=== PATIENT | female | born 1985 | race Caucasian/White ===

== ENCOUNTER 2017-10-31 16:23 | Emergency (ER) | payer OTHER ==
[2017-10-31 16:34] VITALS: BP 108/57
[2017-10-31] MEDS ORDERED: DIPH/PERTUSS(ACELL)/TETANUS VAC/PF 0.5 ML SYR (>=10YO) IM ONE (17:33)
--- NOTE | 2017-10-31 17:33 | ER Document Report ---
ED Medical Screen (RME) - General Chief Complaint: Laceration Stated Complaint: FINGER LACERATION Time Seen by Provider: 10/31/17 17:29 Mode of Arrival: Ambulatory Information source: Patient Notes: 32-year-old female presents to the emergency department today with complaints of a laceration to her right fourth digit. Patient states that she was attempting to cut a zip tie with a knife and the knife slipped. Patient complains of decreased sensation but is wearing a constrictive pressure dressing. Patient is left-hand dominant. TRAVEL OUTSIDE OF THE [place] IN LAST 30 DAYS: No - Related Data Allergies/Adverse Reactions: No Known Allergies Allergy (Verified 06/27/14 12:08) Past Medical History - General Information source: Patient, H Records GI Medical History: Reports: Hx Colonoscopy - Immunizations Immunizations up to date: Yes Hx Diphtheria, Pertussis, Tetanus Vaccination: Yes Review of Systems - Review of Systems Musculoskeletal: See HPI, Other - laceration to right fourth digit on RUE Physical Exam - Vital signs Vitals: Temp Pulse Resp BP Pulse Ox 98.2 F 98 14 108/57 L 97 10/31/17 16:32 10/31/17 16:32 10/31/17 16:32 10/31/17 16:32 10/31/17 16:32 - Skin Notes: 1 cm laceration to the radial aspect of the proximal fourth phalanx. Capillary refill less than 2 seconds. Decreased sensation distally. Of note, patient was wearing a constrictive pressure dressing on arrival. Course - Vital Signs Vital signs: Temp Pulse Resp BP Pulse Ox 98.2 F 98 14 108/57 L 97 10/31/17 16:32 10/31/17 16:32 10/31/17 16:32 10/31/17 16:32 10/31/17 16:32 Scribe Documentation - Scribe Written by Osvaldo:: Osvaldo Chen, 10/31/2017 1823 acting as scribe for :: Karuna
[2017-10-31] MEDS ORDERED: HYDROCODONE/ACETAMINOPHEN 10-325 MG TABLET PO ONE (17:36)
--- NOTE | 2017-10-31 19:22 | ER Document Report ---
ED Wound - General Chief Complaint: Laceration Stated Complaint: FINGER LACERATION Time Seen by Provider: 10/31/17 17:29 Mode of Arrival: Ambulatory Notes: Should not accidentally stabbed herself with a knife. Right hand fourth digit on the volar aspect. Having a hard time flexing her finger. Was seen at urgent care. Sent here for possible tendon repair. TRAVEL OUTSIDE OF THE [place] IN LAST 30 DAYS: No - HPI Patient complains to provider of: Laceration, Puncture wound Occurred: Just prior to arrival Severity: Moderate Pain Level: 3 Context: Injury - Related Data Allergies/Adverse Reactions: No Known Allergies Allergy (Verified 06/27/14 12:08) Past Medical History - General Information source: Patient, [facility] Records - Social History Smoking Status: Current Every Day Smoker Chew tobacco use (# tins/day): No Frequency of alcohol use: Occasional Drug Abuse: None Family History: Hypertension, Thyroid Disfunction Patient has suicidal ideation: No Patient has homicidal ideation: No - Past Medical History Cardiac Medical History: Reports: None Pulmonary Medical History: Reports: None Neurological Medical History: Reports: None Renal/ Medical History: Denies: Hx Peritoneal Dialysis GI Medical History: Reports: Hx Colonoscopy - Immunizations Immunizations up to date: Yes Hx Diphtheria, Pertussis, Tetanus Vaccination: Yes Review of Systems - Review of Systems Constitutional: No symptoms reported Cardiovascular: No symptoms reported Respiratory: No symptoms reported Musculoskeletal: See HPI Skin: See HPI Physical Exam - Vital signs Vitals: Temp Pulse Resp BP Pulse Ox 98.2 F 98 14 108/57 L 97 10/31/17 16:32 10/31/17 16:32 10/31/17 16:32 10/31/17 16:32 10/31/17 16:32 Interpretation: Normal - General General appearance: Appears well, Alert - Respiratory Respiratory status: No respiratory distress Chest status: Nontender Breath sounds: Normal Chest palpation: Normal - Cardiovascular Rhythm: Regular Heart sounds: Normal auscultation Murmur: No - Extremities General upper extremity: Normal color, Normal temperature, Other - There is a 1 cm laceration on the volar aspect of the fourth digit of the right hand radial aspect. There is a 3 mm laceration on the ulnar aspect of the fourth digit on the volar surface of the right hand. Unable to fully elicit flexion of the fourth digit. Very tender to the touch. Small amount of bleeding. Sensation distally is intact. Cap refill is intact. General lower extremity: No: Pillo's sign Course - Re-evaluation Re-evalutation: 10/31/17 21:18 Laceration was repaired. See laceration repair note. Consulted with the orthopedic surgeon Dr. arroyo who will see patient in an expeditious manner as an outpatient. Recommends placing an splint. Will DC at this time. - Vital Signs Vital signs: Temp Pulse Resp BP Pulse Ox 98.2 F 98 14 108/57 L 97 10/31/17 16:32 10/31/17 16:32 10/31/17 16:32 10/31/17 16:32 10/31/17 16:32 Procedures - Laceration/Wound Repair Right Finger Wound length (cm): 1 Wound's Depth, Shape: Linear Laceration pre-procedure: Sterile drapes applied, Shur-Clens applied Anesthetic type: 1% Lidocaine Volume Anesthetic (mLs): 3 Wound explored: Clean, No foreign body removed Irrigated w/ Saline (mLs): 200 Wound Repaired With: Sutures Suture Size/Type: 4:0, Prolene Number of Sutures: 4 Discharge - Discharge Clinical Impression: Finger laceration Qualifiers: Encounter type: initial encounter Finger: ring finger Damage to nail status: with damage Foreign body presence: without foreign body Laterality: right Qualified Code(s): S61.314A - Laceration without foreign body of right ring finger with damage to nail, initial encounter Disposition: HOME, SELF-CARE Instructions: Laceration Care (OM), Tetanus Immunization Given ([facility]) Additional Instructions: Tendon Laceration Referral Your cut damaged an underlying tendon. The tendon needs surgical repair. We are referring you to a specialist for this treatment. You should know that even after repair, the tendon won't be strong enough for normal use for several weeks. You'll need to work at restoring mobility once the tendon has healed. We have closed the skin over the injured tendon. A splint will be used to immobilize the tendon. The splint should NOT be removed without the doctor's permission. You should call or return if there is redness, swelling, increasing pain, red streaks, tender lumps in the armpit or groin, or fever. Laceration Care Your laceration has been sutured to keep the skin edges aligned during healing. The time of suture removal depends on the nature and location of your cut. Please follow the care instructions the doctor has outlined for you and return for further care, according to the schedule you've been given. Keep the wound and dressing clean. Unless you were told otherwise, you may shower daily, blotting the wound dry with a clean, unused towel. At other times, If the dressing gets wet or blood soaked, remove it and blot the wound dry, then reapply a new dressing. Unless you were instructed otherwise, dressings should be changed at least daily. If any signs of infection occur (swelling, redness, increasing tenderness, red streaks, tender lumps in the armpit or groin above the laceration, or fever) , see the doctor immediately. Prescriptions: Cephalexin Monohydrate [Keflex 500 mg Capsule] 500 mg PO Q6H 5 Days capsule Referrals: BECKY WAHL DO [ACTIVE STAFF] - Follow up in 3-5 days
[2017-10-31] MEDS ORDERED: LIDOCAINE 1% INJ-PF (10 MG/ML) 30 ML SDV INJ ONE (19:56)
[2017-10-31] MEDS ORDERED: CEPHALEXIN 500 MG CAPSULE PO ONE (21:11)
[2017-10-31] MEDS ORDERED: HYDROCODONE/ACETAMINOPHEN 5-325 MG (6 TAB/ER DISP) PO PRN (21:22)
== END 2017-10-31 21:51 | disposition home or self-care (01) ==
LOC: ER 16:23
PROC: 0HQFXZZ Repair Right Hand Skin, External Approach (ICD-10-PCS; principal; 2017-10-31)
DX: S61.314A Laceration without foreign body of right ring finger with damage to nail, initial encounter (principal); W26.0XXA Contact with knife, initial encounter; F17.200 Nicotine dependence, unspecified, uncomplicated; Z23 Encounter for immunization
CPT/HCPCS: 99283; 90471; 90715; 12001; J3490

== ENCOUNTER 2017-11-10 07:19 | Day surgery (SDC) | payer OTHER ==
--- NOTE | 2017-11-09 12:50 | EKG REPORT ---
SEVERITY:- NORMAL ECG - SINUS RHYTHM : Confirmed by: Jose Acosta MD 09-Nov-2017 12:50:14
[2017-11-09 13:21] LABS: ABSOLUTE BASOPHILS # (AUTO) 0.1 10^3/uL (0.0-0.2); ABSOLUTE EOSINOPHILS # (AUTO) 0.3 10^3/uL (0.0-0.6); ABSOLUTE LYMPHOCYTES (AUTO) 2.7 10^3/uL (0.5-4.7); ABSOLUTE MONOCYTES (AUTO) 0.4 10^3/uL (0.1-1.4); ABSOLUTE NEUT (AUTO) 5.6 10^3/uL (1.7-8.2); BASOPHILS % (AUTO) 0.7 % (0-2); EOSINOPHILS % (AUTO) 3.5 % (0-6); HEMATOCRIT 42.4 % (36.0-47.0); HEMOGLOBIN 14.6 g/dL (12.0-15.5); LYMPHOCYTES % (AUTO) 29.6 % (13-45); MEAN CORPUSCULAR HEMOGLOBIN 31.3 pg (27.0-33.4); MEAN CORPUSCULAR HGB CONC 34.4 g/dL (32.0-36.0); MEAN CORPUSCULAR VOLUME 91 fl (80-97); MONOCYTES % (AUTO) 4.5 % (3-13); PLATELET COUNT 292 10^3/uL (150-450); RED BLOOD COUNT 4.66 10^6/uL (3.72-5.28); RED CELL DISTRIBUTION WIDTH 12.3 % (11.5-14.0); SEGMENTED NEUTROPHILS % (AUTO) 61.7 % (42-78); TOTAL CELLS COUNTED % (AUTO) 100 %
[2017-11-09 13:25] LABS: APPEARANCE,URINE CLEAR; BILIRUBIN,URINE NEGATIVE (NEGATIVE); COLOR,URINE YELLOW; GLUCOSE, URINE NEGATIVE (NEGATIVE); KETONES,URINE NEGATIVE (NEGATIVE); LEUKOCYTE ESTERASE,URINE NEGATIVE (NEGATIVE); NITRITE,URINE NEGATIVE (NEGATIVE); PROTEIN,URINE NEGATIVE (NEGATIVE); URINE SPECIFIC GRAVITY 1.016
[2017-11-09 13:46] LABS: ANION GAP 10 (5-19); BLOOD UREA NITROGEN 9 mg/dL (7-20); CALCIUM 9.9 mg/dL (8.4-10.2); CARBON DIOXIDE 26 mmol/L (22-30); CHLORIDE 103 mmol/L (98-107); GLUCOSE 75 mg/dL (75-110); POTASSIUM 4.3 mmol/L (3.6-5.0); SODIUM 138.8 mmol/L (137-145)
--- NOTE | 2017-11-09 14:06 | RADIOLOGY REPORT (SQ) ---
EXAM DESCRIPTION: CHEST PA/LATERAL COMPLETED DATE/TIME: 11/09/2017 1:07 pm REASON FOR STUDY: PRE OP COMPARISON: 03/15/2009 EXAM PARAMETERS: NUMBER OF VIEWS: two views TECHNIQUE: Digital Frontal and Lateral radiographic views of the chest acquired. RADIATION DOSE: NA LIMITATIONS: none FINDINGS: LUNGS AND PLEURA: No opacities, masses or pneumothorax. No pleural effusion. MEDIASTINUM AND HILAR STRUCTURES: No masses or contour abnormalities. HEART AND VASCULAR STRUCTURES: Heart normal size. No evidence for failure. BONES: No acute findings. HARDWARE: None in the chest. OTHER: No other significant finding. IMPRESSION: NO SIGNIFICANT RADIOGRAPHIC FINDING IN THE CHEST. TECHNICAL DOCUMENTATION: JOB ID: [id number] [employer]- All Rights Reserved
[~2017-11-10 07:19] MED LIST: ACETAMINOPHEN 100 ML IV ONE; CEFAZOLIN 2 GM/D5W RTU 2 GM/50 ML RTUPB IV PRN; FENTANYL CITRATE INJ/PF 100 MCG/2 ML AMPUL ONE; HYDROMORPHONE HCL INJ/PF 2 MG/ML AMPULE ONE; LACTATED RINGERS 1000 ML IV PRN; LIDOCAINE 0.5% INJ-PF (5 MG/ML) 50 ML SDV SUBCUT PRN; LIDOCAINE 2% INJ-PF (20 MG/ML) 10 ML AMPUL ONE; MIDAZOLAM 2 MG/2 ML INJ ONE; PROPOFOL INJ 200 MG/20 ML VIAL IV ONE
[2017-11-10] MEDS ORDERED: BUPIVACAINE HCL 0.5 % INJ/PF 30 ML SDV ONE (07:23)
[2017-11-10] MEDS ORDERED: DIPHENHYDRAMINE HCL 50 MG/ML VIAL IV PRN (08:38)
[2017-11-10] MEDS ORDERED: OXYCODONE-ACETAMINOPHEN 5-325 MG TABLET PO PRN ×3 (08:38→09:20)
[2017-11-10] MEDS ORDERED: PROMETHAZINE HCL INJ 25 MG/1 ML VIAL IV PRN ×2 (08:38)
[2017-11-10] MEDS ORDERED: MEPERIDINE HCL/PF INJ 25 MG/1 ML DISP.SYRIN IV PRN (08:38)
[2017-11-10] MEDS ORDERED: FENTANYL CITRATE INJ/PF 100 MCG/2 ML AMPUL IV PRN ×3 (08:38)
[2017-11-10] MEDS ORDERED: MORPHINE SULFATE 10 MG/ML INJ IV PRN (08:38)
[2017-11-10] MEDS ORDERED: ONDANSETRON HCL INJ/PF 4 MG/2 ML SDV IV PRN ×2 (08:38→09:20)
--- NOTE | 2017-11-10 09:26 | Operative Report ---
Operative Report DATE OF SURGERY: 11/10/17 PREOPERATIVE DIAGNOSIS: Right ring finger radial digital nerve laceration POSTOPERATIVE DIAGNOSIS: Right ring finger partial radial digital nerve laceration OPERATION: Repair right ring finger partial radial digital nerve laceration w/ nerve conduit SURGEON: BECKY WAHL ANESTHESIA: GA COMPLICATIONS: None ESTIMATED BLOOD LOSS: Minimal PROCEDURE: Indication for above procedure: 32-year-old female who sustained a inadvertent laceration to her right ring finger. Patient was seen at the emergency room where the area was cleaned and loosely closed. She followed up at my office complaining of numbness and burning pain which radiates up the finger. 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 We discussed treatment options including observation versus operative intervention. After discussing risks benefits joint decision was made to proceed with operative treatment. Procedure In Detail: Patient was seen and evaluated in the preoperative holding area. The RIGHT upper extremity was initialized and marked. Patient received 2g of Ancef IV for bacterial prophylaxis. Patient was taken back to the operative room where transferred to the operative table and placed under general anesthesia. Once they were adequately anesthetized a nonsterile tourniquet was placed on the upper extremity. A surgical team debriefing was performed ensuring all instrumentation was available, the surgical procedure was discussed with possible concerns reviewed. The upper extremity was prepped with chlorhexidine and alcohol and draped in a sterile fashion. A timeout was done identifying correct patient, procedure and extremity everyone in attendance agree with this and verbalized no concerns. The extremity was exsanguinated the tourniquet was inflated to 250 mmHg. Patient's previous skin incision was utilized and Patient's wound was utilized along its mid lateral border and extended proximally and distally with Dorian extensions. Blunt dissection was performed. The radial neurovascular bundle was identified. Flexor tendons were explored without disruption. Initial exploration of the radial digital nerve demonstrated continuity without complete laceration. I then utilized the microscope and under increased magnification there was evidence of a partial digital nerve injury at the level of patient's Tinel's and discomfort. Thus a Axogen 2 mm x 20 mm nerve conduit was placed around the area of disruption. This was secured with horizontal mattress 8-0 nylon sutures. I then passively flexed and extended the digit and there is good stability of my nerve conduit. The wound was then copiously irrigated with normal saline and the tourniquet deflated. Compression was held for 2 minutes any peripheral bleeding was coagulated with bipolar cautery until the wound was dry. 20 cc of 0.5% Marcaine with epinephrine was injected for postoperative pain control. Wound was loosely closed with interrupted 4-0 nylon suture. Wound was dressed with Xeroform 4 x 4's and soft roll. Patient was placed in a dorsal blocking splint of the ring and small finger maintaining the intrinsic plus position. Sponge counts, instrument counts, needle counts counts were correct. Patient was then awoken from anesthesia. Transferred from the operating room table to the operating room stretcher. There was no intraoperative complications patient tolerated procedure well stable to PACU. Postoperative plan: Patient will follow-up in the office 10-14 days postoperative begin therapy as per digital nerve protocol.
--- NOTE | 2017-11-10 09:27 | PDOC DISCHARGE SUMMARY ---
Discharge Summary (SDC) - Discharge Final Diagnosis: Right ring finger partial radial digital nerve laceration Date of Surgery: 11/10/17 Discharge Date: 11/10/17 Condition: Good Treatment or Instructions: Schedule Follow Up w/ Dr. Jamar Ribera @ [facility] to be seen in 10-14 days or as scheduled [place]: [place]: Davis: Ice and elevate Keep splint clean/dry/intact. If your fingers become numb please unwrap the Jeet wrap but leave the splint in place, if the sensation does not return within 30 minutes please return to the emergency department. May begin finger range of motion attempting to make full fist. You may also use acetaminophen (Tylenol) 1000 mg every 4-6 hours as needed for pain or fever. Please be aware that many medications contain acetaminophen, do not exceed a total of 1000 mg of acetaminophen every 6 hours. If ibuprofen and acetaminophen are not sufficient for your pain you may take the Percocet. Please be aware that the Percocet does contain Tylenol. Stool softener of choice when on pain medication. Prescriptions: Ketorolac Tromethamine [Toradol 10 mg Tablet] 10 mg PO Q8HP PRN #10 tablet PRN Reason: Oxycodone HCl/Acetaminophen [Percocet 5-325 mg Tablet] 1 - 2 tab PO ASDIR PRN # 25 tablet PRN Reason: Referrals: BEA FREEMAN MD [Primary Care Provider] - Discharge Diet: As Tolerated Respiratory Treatments at Home: Deep Breathing/Coughing Discharge Activity: No Lifting Over 10 Pounds, No Lifting/Push/Pulling Report the Following to Your Physician Immediately: Fever over 101 Degrees, Unusual Bleeding, Redness, Swelling, Warmth
[2017-11-10] MEDS ORDERED: FENTANYL CITRATE INJ/PF 100 MCG/2 ML AMPUL ONE (09:35)
[2017-11-10 12:29] VITALS: BP 96/58
[2017-11-10] MEDS ORDERED: ONDANSETRON HCL INJ/PF 4 MG/2 ML SDV ONE (14:38)
[2017-11-10] MEDS ORDERED: METOCLOPRAMIDE HCL INJ/PF 10 MG/2 ML SDV ONE (14:38)
[2017-11-10] MEDS ORDERED: SUCCINYLCHOLINE CHLORIDE INJ 200 MG/10 ML VIAL ONE (14:38)
[2017-11-10] MEDS ORDERED: DEXAMETHASONE SOD PHOSPHATE INJ 4 MG/1 ML VIAL ONE (14:38)
== END 2017-11-10 12:20 | disposition home or self-care (01) ==
LOC: OROUT 07:19
PROVIDERS: ATTEND Orthopaedic Surgery
PROC: 01U60JZ Supplement Radial Nerve with Synthetic Substitute, Open Approach (ICD-10-PCS; principal; 2017-11-10 09:15)
DX: S64.494A Injury of digital nerve of right ring finger, initial encounter (principal); W26.9XXA Contact with unspecified sharp object(s), initial encounter; M79.644 Pain in right finger(s)
CPT/HCPCS: 93005; 36415; 85025; 81025; 80048; 81001; 71046; 93010; 64910; J2250; J3490 ×2; J1100; J3010; J2765; J1170; J0330; J2405; J2704; J0690; J0131; 1810

== ENCOUNTER 2019-03-09 16:30 | Emergency (ER) | payer OTHER ==
[2019-03-09] MEDS ORDERED: TETRACAINE HCL 0.5% OPH SOLN 4 ML OD ONE (17:57)
[2019-03-09] MEDS ORDERED: ERYTHROMYCIN 0.5% OPH OINTMENT 3.5 GM (ER DISP) OD PRN (18:24)
--- NOTE | 2019-03-09 18:27 | ER Document Report ---
HPI - HPI Patient complains to provider of: Right eye irritation Time Seen by Provider: 03/09/19 17:57 Onset: Other - 2 days Onset/Duration: Persistent Severity: Severe Pain Level: 5 Context: Patient presents emergency department with complaints of right eye irritation she reports started few days ago. Reports she was moving things around getting ready for her brother and mother to move in with her when she noticed irritation to right eye. She lives and he reports of possibly some sand. She denies wearing contacts. She went to the the [place] who did an exam but sent her here for further exam. She reports her right eye is very sensitive to light and feels a little blurry. She denies other symptoms such as fever vomiting diarrhea. Associated Symptoms: None Exacerbated by: Denies Relieved by: Denies Similar symptoms previously: Yes Recently seen / treated by doctor: Yes - EENT EENT: REPORTS: Eye problems - REPRODUCTIVE Reproductive: DENIES: : Past Medical History - General Information source: Patient - Social History Smoking Status: Never Smoker Cigarette use (# per day): No Frequency of alcohol use: None Drug Abuse: None Lives with: Family Family History: Hypertension, Thyroid Disfunction Patient has suicidal ideation: No Patient has homicidal ideation: No - Past Medical History Cardiac Medical History: Denies: Hx Coronary Artery Disease, Hx Heart Attack, Hx Hypertension Pulmonary Medical History: Reports: Hx Asthma, Hx Pneumonia Denies: Hx Bronchitis, Hx COPD Neurological Medical History: Denies: Hx Cerebrovascular Accident, Hx Seizures Renal/ Medical History: Denies: Hx Peritoneal Dialysis GI Medical History: Reports: Hx Colonoscopy Musculoskeletal Medical History: Denies Hx Arthritis Past Surgical History: Reports: Hx Cholecystectomy - Immunizations Immunizations up to date: Yes Hx Diphtheria, Pertussis, Tetanus Vaccination: Yes Hx Pneumococcal Vaccination: 09/11/17 Vertical Provider Document - CONSTITUTIONAL Agree With Documented VS: Yes Exam Limitations: No Limitations General Appearance: WD/WN, No Apparent Distress - INFECTION CONTROL TRAVEL OUTSIDE OF THE [place] IN LAST 30 DAYS: No - HEENT HEENT: Atraumatic, Normocephalic, PERRLA. negative: Conjuctival Injection - NECK Neck: Supple - RESPIRATORY Respiratory: Breath Sounds Normal, No Respiratory Distress - CARDIOVASCULAR Cardiovascular: Regular Rate - MUSCULOSKELETAL/EXTREMETIES Musculoskeletal/Extremeties: MONICA CARRENO - NEURO Level of Consciousness: Awake, Alert, Appropriate Motor/Sensory: No Motor Deficit - DERM Integumentary: Warm, Dry Course - Re-evaluation Re-evalutation: 03/09/19 18:43 Patient instructed on erythromycin ointment. Also instructed on the importance of follow-up with ophthalmology. [facility]. She was also instructed to return the emergency department for worsening pain irritation or concerns. Dictation of this chart was performed using voice recognition software; therefore, there may be some unintended grammatical errors. - Vital Signs Vital signs: Temp Pulse Resp BP Pulse Ox 98.2 F 83 16 106/64 96 03/09/19 17:04 03/09/19 17:04 03/09/19 17:04 03/09/19 17:04 03/09/19 17:04 Procedures - Eye Procedure Right Eye Irrigated w/ Saline (ccs): 20 Alcaine Drops Administered: Yes - TETRACAINE Fluorescein applied: Right Antibiotic Oinment/Drps Admin: Right eye Slit lamp used: No Notes: 03/09/19 18:40 Tetracaine applied patient reports immediate relief of irritation after application. Eyes picture: 1 - Fluoroscein uptake Discharge - Discharge Clinical Impression: Irritation of right eye Conjunctival abrasion Qualifiers: Encounter type: initial encounter Laterality: right Qualified Code(s): S05.01XA - Injury of conjunctiva and corneal abrasion without foreign body, right eye, initial encounter Condition: Stable Disposition: HOME, SELF-CARE Instructions: Acetaminophen, Erythromycin ([facility]) Additional Instructions: *You have been evaluated for eye irritation, conjunctivae abrasion *Use eye ointment as prescribed, half-inch ribbon to right lower lid 3 times a day *Good hand washing *Follow up with an graffiti cleaner within the next 3 days *[facility] to gra[facility] *Return to ED for worsening condition, changes, needs, difficulty seeing, increased pain Referrals: BEA FREEMAN MD [Primary Care Provider] - Follow up tomorrow
[2019-03-09 18:39] VITALS: BP 101/58
== END 2019-03-09 18:38 | disposition home or self-care (01) ==
LOC: ER 16:30
DX: S05.01XA Injury of conjunctiva and corneal abrasion without foreign body, right eye, initial encounter (principal); X58.XXXA Exposure to other specified factors, initial encounter; J45.909 Unspecified asthma, uncomplicated
CPT/HCPCS: 99283; J3490